=== PATIENT | female | born 1960 | race Caucasian/White ===

== ENCOUNTER 2016-11-07 13:03 | Outpatient (CLI) | payer OTHER ==
[~2016-11-07 13:03] MED LIST: Iopamidol 370 76% 100 ML VIAL ONE
--- NOTE | 2016-11-07 18:36 | CT ---
CT OF NECK SOFT TISSUES WITH CONTRAST: Date: 11/07/16 CLINICAL HISTORY: Vocal cord paralysis with dysphonia. No prior imaging comparisons. FINDINGS: Mild benign-appearing effacement of the right side fossa of Rosenmuller present. No discernible naso pharyngeal mass is seen. There is mild prominence of bilateral palatine tonsils without focal mass o r abscess identified. Epiglottis and preepiglottic space are maintained. Adenoid and lingual tonsils are of normal caliber. Submandibular and parotid glands are unremarkable. Small hypodensities of th e bilateral thyroid gland are present. There are mildly prominent cervical chain lymph nodes of inde terminate etiology. No mass effect at the level of the glottis. Subglottic tracheal air column is pa tent. Nonspecific patchy ground-glass opacities of the upper lung zones are present. Osseous degener ative change at the cervical spine is present. There is a symmetric appearing mild redundancy at the level of the false vocal cords bilaterally, which may relate to a physiologic partial apposition. IMPRESSION: 1. There is no mass at the level of the glottis. No abnormal deviation of the true vocal cords. 2. Tiny thyroid lobe hypodensities bilaterally, too small to further characterize. For the clinical concern of vocal cord paralysis, recommend correlation with direct visualization, i f not already performed. POS: [facility]
== END 2016-11-07 13:04 | disposition home or self-care (01) ==
LOC: NAV CT 13:03
PROVIDERS: ATTEND Otolaryngology
DX: J38.01 Paralysis of vocal cords and larynx, unilateral (principal); R49.0 Dysphonia
CPT/HCPCS: 70491

== ENCOUNTER 2016-12-19 08:47 | Outpatient (CLI) | payer OTHER ==
[2016-12-19] MEDS ORDERED: Iopamidol 370 76% 100 ML VIAL ONE (09:00)
[2016-12-19 09:27] LABS: Calc. Creatinine Clearance 0 mL/min (70-130); Estimated GFR-MDRD Greater than 90
--- NOTE | 2016-12-19 13:48 | CT ---
CT CHEST WITH IV CONTRAST: History: Vocal cord paralysis. FINDINGS: Tiny nonspecific subpleural nodules are noted within the right upper and lower lobes. No dominant no dule is apparent. There is no pleural fluid, pneumothorax, or mediastinal adenopathy apparent. Pos t-operative changes of the stomach are apparent with a small hiatal hernia visible. There are promi nent degenerative changes of the thoracolumbar spine. IMPRESSION: 1. No mediastinal mass is demonstrated to explain vocal cord paralysis. 2. Small hiatal hernia. POS: [facility]
== END 2016-12-19 08:48 | disposition home or self-care (01) ==
LOC: NAV CT 08:47
PROVIDERS: ATTEND Otolaryngology
DX: J38.01 Paralysis of vocal cords and larynx, unilateral (principal); K44.9 Diaphragmatic hernia without obstruction or gangrene
CPT/HCPCS: 36415; 71260; 82565